=== PATIENT | male | born 1955 | race Caucasian/White ===

== ENCOUNTER 2025-02-20 13:26 | Emergency (ER) | payer BC, SELFPAY ==
[2025-02-20 13:30] VITALS: BP 149/83; PULSE 79; TEMP 37.6; O2SAT 94; BMI 26.8
--- NOTE | 2025-02-20 13:36 | ED_ITS ---
HPI HPI - General Adult General Chief complaint: Abdominal Pain Stated complaint: constipation Time Seen by Provider: 02/20/25 13:33 Source: patient Mode of arrival: walk-in History of Present Illness HPI narrative: 69-year-old male presents to the emergency department for constipation. He states he has not had any bowel movement since 5 days and he has tried MiraLAX he states he does not even feel like he needs to go but his stomach's been hurting. He has been urinating without trouble. No trauma or fever. He has had inguinal hernia repair but no other abdominal surgeries. Related Data Allergies Allergy/AdvReac Type Severity Reaction Status Date / Time No Known Drug Allergies Allergy Verified 02/20/25 13:36 Review of Systems ROS Narrative A ten point review of systems is negative except as noted above. PFSH PFSH Social History Little interest or pleasure in doing things: not at all Feeling down, depressed, or hopeless: not at all Exam Narrative Exam Narrative: Nurses note and vital signs reviewed and patient is not hypoxic. General: The patient appears well and in no apparent distress. Patient is resting comfortably on cart. Skin: Warm, dry, no pallor noted. There is no rash noted. Head: Normocephalic, atraumatic Eye: Normal conjunctiva, no drainage Ears, Nose, Mouth, and Throat: oral mucosa is moist. Nares patent. Cardiovascular: Regular Rate and Rhythm Respiratory: Patient is in no distress, no accessory muscle use, lungs are clear to auscultation, no wheezing, rales or rhonchi Back: non-tender GI: Nondistended. He seems to have mild diffuse tenderness. Musculoskeletal: The patient has no evidence of calf tenderness, no pitting edema, symmetrical pulses noted bilaterally Neurological: A&O, normal speech Psychiatric: Cooperative Constitutional Vital Signs, click to edit/add: Last Vital Signs Temp 99.7 F 02/20/25 13:30 Pulse 79 02/20/25 13:30 Resp 18 02/20/25 13:30 BP 149/83 H 02/20/25 13:30 Pulse Ox 94 L 02/20/25 13:30 O2 Del Method Room Air 02/20/25 13:30 Course Vital Signs Vital signs: Vital Signs Temperature 99.7 F 02/20/25 13:30 Pulse Rate 79 02/20/25 13:30 Respiratory Rate 18 02/20/25 13:30 Blood Pressure 149/83 H 02/20/25 13:30 Pulse Oximetry 94 L 02/20/25 13:30 Oxygen Delivery Method Room Air 02/20/25 13:30 Temperature 99.7 F 02/20/25 13:30 Pulse Rate 79 02/20/25 13:30 Respiratory Rate 18 02/20/25 13:30 Blood Pressure 149/83 H 02/20/25 13:30 Pulse Oximetry 94 L 02/20/25 13:30 Oxygen Delivery Method Room Air 02/20/25 13:30 Medical Decision Making MDM Narrative Medical decision making narrative: My clinical impression is that he has constipation. He was given a bottle of magnesium citrate and is discharged home. At this point I do not suspect diverticulitis or other acute intra-abdominal pathology. Treatment diagnosis and follow-up were discussed with the patient. Differential Diagnosis Differential Diagnosis: Constipation, nonspecific abdominal pain, diverticulitis Imaging Data Abdominal x-ray: My impression: Large amount of stool in ascending colon Discharge Plan Discharge Chief Complaint: Abdominal Pain Clinical Impression: Constipation Patient Disposition: Home, Self-Care Time of Disposition Decision: 14:02 Condition: Good Mode of Transportation: Private Vehicle Print Language: Bahraini Instructions: Constipation (ED) Referrals: AYLA SAMAYOA [Physician, Family Practice] - 1 week
--- NOTE | 2025-02-20 13:36 | XR_ITS ---
The [address] [address] Patient Name: CLEM QUINTERO MRN: [id number] date: 1955 Sex: M Assigned Patient Location: ER Current Patient Location: ED.MAIN Accession/Order Number: [id number] Exam Date: 02/20/2025 14:17 Report Date: 02/20/2025 14:18 At the request of: JOSE PRUITT MD Procedure: XR abdomen 1V XR abdomen 1V 02/20/2025 2:05 PM SIGNS AND SYMPTOMS: Constipation, abdominal pain PROTOCOL: Frontal radiographs of the abdomen and pelvis COMPARISON: None FINDINGS: There is a large amount of stool within the colon, greatest in the cecum and ascending colon. This is consistent with constipation. There is a nonobstructive bowel gas pattern. No radiographic evidence of free air. Degenerative changes are noted in the thoracolumbar spine. XR/XR abdomen 1V IMPRESSION: There is a large amount of stool within the colon, greatest in the cecum and ascending colon. This is consistent with constipation. No bowel obstruction or free air. Impression dictated by: Sergio Herrera M.D. 02/20/2025 2:18 PM Dictation Location: [place] [address] Electronically authenticated by: [id number] Y Date: 02/20/2025 14:18
[2025-02-20] MEDS: MAGNESIUM CITRATE 296 ML SOLUTION PO (14:18)
== END 2025-02-20 14:31 | disposition home or self-care (01) ==
PROVIDERS: Emergency Provider Emergency Medicine; PCP Family Medicine
DX: K59.00 Constipation, unspecified (principal)
CPT/HCPCS: 74018; 99283

== ENCOUNTER 2025-06-07 13:00 | Outpatient (OUT) | payer BC, MEDICARE, SELFPAY ==
--- OUTSIDE RECORDS SUMMARY | 2025-06-01 15:00 | XMS_ITS | Encounter Summary ---
Author Organization [facility] tem Address [id number] [address] [place] [address] Care Team Providers Care Franchise Sales Director Name Role Phone Gerald Garcia DO Primary Care Provider [phone] Reason for Visit * Reason Comments Diabetes Mellitus MTM Follow-up Visit Encounter Details Date Type Department Care Team (Latest Contact Info) Description 06/01/2025 3:00 PM EDT Clinical Support [facility] - Pharmacy Medication Management [address] [place] [address] Type 2 diabetes mellitus without complication, without long-term current use of insulin ([facility]) (Primary Dx) Social History Tobacco Use Types Packs/Day Years Used Date Smoking Tobacco: Never Smokeless Tobacco: Never Alcohol Use Standard Drinks/Week Comments Not Currently 0 (1 standard drink = 0.6 oz pur e alcohol) ocassional AUDIT-C Answer Date Recorded Frequency of Alcohol Consumption Monthly or less 02/24/2019 Average Number of Drinks 1 or 2 019 Frequency of Binge Drinking Never 01/29 PHQ-2 Answer Date Recorded Total Score 2 05/12/2025 Childcare Answer Date Recorded Childcare Unknown 03/11/2019 Employment Answer Date Recorded Employment Unknown 03/11/2019 Hunger Screening Answer Date Recorded Within the past 12 months we worried whether our food would run out before we got money to buy more. Never True 05/12/2025 Within the past 12 months th e food we bought just didn't last and we didn't have money to get more. Never True 05/12/2025 Purpose - Life Answer Date Recorded Purpose and direction in life Unknown Sex and Gender Information Value Date Recorded Sex Assigned at Male 06/08/2020 6:15 PM EDT Legal Sex Male 11:40 AM EDT Gender Identity Male 06/08/2020 6:15 PM EDT Sexual Orientation Not on file documented as of this encounter Progress Notes * Nida Christian, [facility] - 06/01/2025 3:00 PM EDT Images from the original note were not included. [facility] - PHARMACY MEDICATION MANAGEMENT [address] [facility] [phone] Subjective SUBJECTIVE: Referring Provider: Gerald Garcia MD [facility] Referring Provider: Yes Consult Agreement: Yes Employee Program:No At last PharmD visit, no changes were made Car Awad is a 69 y.o. (White or [1]) male who presents for a follow up MTM visit ofType 2 Diabetes Mellitus. Car Awad is accompanied by his no relatives. Pertinent current medications include: Metformin XR 1,000 mg in AM, 1000 mg in PM Ozempic 2 mg weekly- Saturday Pertinent previous medications include: Glimepiride- intolerable GI and urinary symptoms Farxiga- intolerable urinary symptoms PERTINENT PAST MEDICAL HISTORY: Chronic Kidney Disease: No Atherosclerotic Cardiovascular Disease (ASCVD): No Heart Failure with Reduced/Preserved Ejection Fraction: No Pancreatitis/Gastroparesis: No Medullary Thyroid Carcinoma: No Bariatric Surgery: No Genitourinary Fungal Infections: No DIET: 2 meals Eating a lot of fruit-- encouraged to pair with protein 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 calibrations per day: 0.0 Objective OBJECTIVE: Vitals: There were no vitals taken for this visit. Caffeine intake within 60 minutes: No Height: Weight: Wt Readings from Last 3 Encounters: 05/12/25 85.6 kg (188 lb 12.8 oz) 05/06/25 71.3 kg (157 lb 1.6 oz) 03/01/25 83.4 kg (183 lb 12.8 oz) Weight Trend: . BMI: There is no height or weight on file to calculate BMI. A1c: Lab Results Component Value Date HGBA1C 6.8 (H) 05/05/2025 HGBA1C 6.8 (H) 11/24/2024 HGBA1C 7.1 (H) 08/28/2024 HGBA1C 8.3 (H) 05/13/2024 HGBA1C 11.2 (H) 01/02/2023 Lab Results Component Value Date [id number] 6.6 (A) 03/01/2025 [id number] 7.7 (A) 01/14/2024 FEFUEWY5Y 8.5 (A) 10/14/2023 [id number] 8.3 (A) 07/11/2023 [id number] 8.6 (A) 04/03/2023 @RESUDAST(POCA1C:5)@ No results found for: YGTMHHE3X SCr: Lab Results Component Value Date CREATININE 1.21 (H) 05/06/2025 GFR: GFR MDRD Af Amer Date Value Ref Range Status 08/25/2021 >60 >59 ml/min/1.73sq.m Final GFR MDRD Non Af Amer Date Value Ref Range Status 08/25/2021 >60 >59 ml/min/1.73sq.m Final UACR: Alb/creat ratio Date/Time Value Ref Range Status 05/13/2024 07:34 AM 10.9 0.0 - 30.0 mg/g creat Final 01/02/2023 06:30 AM 15.0 0.0 - 30.0 mg/g creat Final No results found for: EXTPOCALB No results found for: EXTUMICOR No components found for: PROTCREATRA No results found for: UPROCRTRAT Vitamin B12 Level: Lab Results Component Value Date [id number] 302 08/28/2024 Lipid Management: Lab Results Component Value Date CHOL 152 05/05/2025 CHOL 125 (L) 11/25/2024 No results found for: EXTCHOL No results found for: EXTPOCCHO Lab Results Component Value Date HDL 37 (L) 05/05/2025 HDL 36 (L) 11/25/2024 No results found for: EXTCHOHDL No results found for: EXTPOCHDL Lab Results Component Value Date LDLCALC 81 05/05/2025 LDLCALC 51 11/25/2024 No results found for: EXTLDL No results found for: EXTPOCLDL Lab Results Component Value Date TRIG 169 (H) 05/05/2025 TRIG 188 (H) 11/25/2024 No results found for: EXTRIG No results found for: EXTPOCTRIG ADA Diabetes Quality Measures: - A1c: Up to date 05/05/25; 6.8% - Kidney Screening: - SCr: Up to date 11/25/24 - UACR: Up to date 05/13/24 - Lipid Screening: Up to date 11/25/24 - Vit B12: up to date 08.28.24, WNL - Eye Exam: Up to date 01/2025 - Foot Exam: Up to date 04/2024 - Dental Exam: Up to date every 6 months - Tobacco User: No - On Aspirin: No - On TERRENCE/ARB: No- did not tolerate lisinopril; BP WNL today - On Statin: Yes -atorvastatin 40 mg daily - Immunizations: Influenza Complete: No Pneumonia Complete: No Hepatitis B Complete: No Shingles Complete: No Tdap Complete: No Covid Complete: Yes Immunization History Administered Date(s) Administered COVID-19, mRNA, LNP-S, PF, 100mcg/0.5mL Dose 11/16/2020, 12/16/2020, 09/28/2021 Influenza, Injectable, quadrivalent (PF) 08/16/2017, 12/02/2019 ASSESSMENT/PLAN: ASSESSMENT: Type 2 Diabetes Mellitus: Most recent hemoglobin A1c is controlled at 6.8% on 05/05/2025. Most recent 2 week average is: 159 mg/dL PPG elevations continue at times, but are well controlled other days Tolerating medications without concern Since last OV patient had an admission for a possible TIA. Upon discharge followed up with neurology whom notes migraine/LAURA/exhaustion concerns. They recommended starting divalproex as well as revisiting LAURA treatment. Encouraged patient to follow up with Dr. Garcia regarding his LAURA. EDUCATION / ADA MEASURES: Reviewed general diabetes pathophysiology and management Reviewed A1C and blood glucose goals Reviewed CGM use and report with patient Reviewed diabetes medication dosing, route, frequency, and side effects Encouraged using the Plate Method for healthy eating Requested to bring in blood sugar readings to next visit MEDICATION PLAN: Continue Ozempic to 2 mg weekly Continue Metformin XR 500 mg 2 tabs BID Refills needed on pertinent current medications/supplies: No Patient Assistance, [employer] Coupon, or Prior Authorization: No MONITORING: CGM: Yes Glucometer Testing: As needed with CGM FOLLOW UP: Next PCP visit: 06/24/2025 Next Pharmacist visit: 10/05/2024 Signature: Nida Christian PharmD, [facility] 30 minute [id number] follow-up appointment. Nida Christian RPH 06/01/25 1603 documented in this encounter Plan of Treatment Upcoming Encounters Date Type Department Care Team (Late st Contact Info) Description 06/24/2025 3:00 PM EDT Office Visit [facility] Family Medicine [address] [place] [phone] Gerald Garcia DO [address] [facility], [address] [place], [place] [phone] 10/05/2025 3:00 PM EST Clinical Support [facility] - Pharmacy Medication Management [address] [place] [address] documented as of this encounter Goals Goal Patient Goal Type Associated Problems Recent Progress Patient-Stated? Author home General Yes Haley Tafoya, RN Note: Evaluation of progress towards goal: home no needs when medically stable documented as of this encounter Visit Diagnoses Diagnosis Type 2 diabetes mellitus without complication, without long-term current use of insulin ([facility])- Primary documented in this encounter Additional Health Concerns Assessment Noted Time PHQ-9 Depression Total Score: 2 05/12/20 25 12:55 PM EDT A Body Mass Index follow-up plan has been documented for the patient 08/30/2017 2:42 PM EST documented as of this encounter Care Teams Franchise Sales Director Relationship Specialty Start Date End Date Gerald Garcia DO [address] [facility], [facility] [address] [place] [address] PCP - General Family Medicine 05/05/25 documented as of this encounter
--- OUTSIDE RECORDS SUMMARY | 2025-06-08 09:25 | XMS_ITS | Encounter Summary ---
Author Organization [facility] Address [id number] [address] [place] [address] Care Team Providers Care Non Profit Director Name Role Phone Gerald Garcia DO Primary Care Provider [phone] Reason for Visit * Reason Onset Date Comments Med Refill 06/21/2023 Encounter Details Date Type Department Care Team (Late st Contact Info) Description 06/21/2023 Refill [facility] [address] [place] [address] Paulette Anton CMA Social History Tobacco Use Types Packs/Day Years Used Date Smoking Tobacco: Never Smokeless Tobacco: Never Alcohol Use Standard Drinks/Week Comments Yes 0 (1 standard drink = 0.6 oz pur e alcohol) ocassional AUDIT-C Answer Date Recorded Frequency of Alcohol Consumption Monthly or less 02/24/2019 Average Number of Drinks 1 or 2 019 Frequency of Binge Drinking Never 01/29 PHQ-2 Answer Date Recorded Total Score 0 05/06/2023 Childcare Answer Date Recorded Childcare Unknown 03/11/2019 Employment Answer Date Recorded Employment Unknown 03/11/2019 Hunger Screening Answer Date Recorded Within the past 12 months we worried whether our food would run out before we got money to buy more. Never True 05/06/2023 Within the past 12 months th e food we bought just didn't last and we didn't have money to get more. Never True 05/06/2023 Purpose - Life Answer Date Recorded Purpose and direction in life Unknown Sex and Gender Information Value Date Recorded Sex Assigned at Male 06/08/2020 6:15 PM EDT Legal Sex Male 11:40 AM EDT Gender Identity Male 06/08/2020 6:15 PM EDT Sexual Orientation Not on file documented as of this encounter Plan of Treatment Upcoming Encounters Date Type Department Care Team (Late st Contact Info) Description 06/24/2025 3:00 PM EDT Office Visit [facility] Family Medicine [address] [place] [phone] Gerald Garcia DO [address] [facility], [place] [address] 10/05/2025 3:00 PM EST Clinical Support [facility] - Pharmacy Medication Management [address] [place] [address] documented as of this encounter Goals Goal Patient Goal Type Associated Problems Recent Progress Patient-Stated? Author home General Yes Haley Tafoya, MELLY Note: Evaluation of progress towards goal: home no needs when medically stable documented as of this encounter Visit Diagnoses Not on filedocumented in this encounter Additional Health Concerns Assessment Noted Time PHQ-9 Depression Total Score: 0 05/06/20 23 7:00 AM EDT A Body Mass Index follow-up plan has been documented for the patient 08/30/2017 2:42 PM EST documented as of this encounter Care Teams Non Profit Director Relationship Specialty Start Date End Date Gerald Garcia DO [address] [facility], [place] [address] PCP - General Family Medicine 05/05/25 documented as of this encounter
--- OUTSIDE RECORDS SUMMARY | 2025-06-08 09:25 | XMS_ITS | Encounter Summary ---
Author [facility] Address [id number] [address] [place] [address] Care Team Providers Care Dredge Engineer Name Role Phone RanjithGerald florez Sophie TY Primary Care Provider [phone] Encounter Details Date Type Department Care Team (Late st Contact Info) Description 02/23/2025 Orders Only [facility] [address] [place] [address] [place] [phone] Ref Prov, [place] [address] Social History Tobacco Use Types Packs/Day Years [...] PHQ-2 Answer Date Recorded Total Score 0 12/09/2024 Childcare Answer Date Recorded Childcare Unknown 03/11/2019 Employment Answer Date Recorded Employment Unknown 03/11/2019 Hunger Screening Answer Date Recorded Within the past 12 months we worried whether our food would run out before we got money to buy more. Never True 12/09/2024 Within the past 12 months th e food we bought just didn't last and we didn't have money to get more. Never True 12/09/2024 Purpose - Life Answer Date Recorded Purpose [...] Description 06/24/2025 3:00 PM EDT Office Visit [facility] Family Medicine [address] [place] [phone] Gerald Garcia DO [address], [address], [place] [address] 10/05/2025 3:00 PM EST Clinical Support [facility] - Pharmacy Medication Management [address] [place] [address] documented as of this encounter Goals Goal Patient Goal Type Associated Problems Recent Progress Patient-Stated? Author home General Yes Haley Tafoya, RN Note: Evaluation of progress towards goal: home no needs when medically stable documented as of this encounter Procedures Procedure Name Priority Date/Time Associated Diagnosis Comments DIABETES EYE EXAM Routine 02/18/2025 8:04 AM EDT documented in this encounter Results * DIABETES EYE EXAM (02/18/2025 8:04 AM EDT) us Not In System Ref Prov HEALTH MAINTENANCE Final Result MANUALLY TRANSCRIBED RESULTS documented in this encounter Visit Diagnoses Not on filedocumented in this encounter Additional Health Concerns Assessment Noted Time PHQ-9 Depression Total Score: 0 12/10/19 3:39 PM EDT A Body Mass Index follow-up plan has been documented for the patient 08/30/2017 2:42 PM EST documented as of this encounter Care Teams Dredge Engineer Relationship Specialty Start Date End Date Gerald Garcia DO [address] [facility], [address] [place] [address] PCP - General Family Medicine 05/05/25 documented as of this encounter
--- OUTSIDE RECORDS SUMMARY | 2025-06-08 09:25 | XMS_ITS | Encounter Summary ---
Author Organization [facility] tem Address [id number] [address] [place] [address] Care Team Providers Care Sanitation Inspector Name Role Phone RanjithGerald florez Sophie TY Primary Care Provider Reason for Visit * Reason Onset Date Comments Discharge Speech Therapy 11/22/2020 Encounter Details Date Type Department Care Team (Late st Contact Info) Description 11/22/2020 Documentation [facility] - ENT [address] [facility] [place] [phone] Lupe Braden CCC-CONTACT LENS CUTTER Discharge Speech Therapy Social History Tobacco Use Types Packs/Day Years [...] PHQ-2 Answer Date Recorded Total Score 0 08/30/2020 Childcare Answer Date Recorded Childcare Unknown 03/11/2019 Employment Answer Date Recorded Employment Unknown 03/11/2019 Purpose - Life Answer Date Recorded Purpose and direction in life Unknown Sex and Gender Information Value Date Recorded Sex Assigned at Male 06/08/2020 6:15 PM EDT Legal Sex Male 11:40 AM EDT Gender Identity Male 06/08/2020 6:15 PM EDT Sexual Orientation Not on file documented as of this encounter Progress Notes * Edith Corona MD - 11/22/2020 11:06 AM EST reviewed documented in this encounter Plan of Treatment Upcoming Encounters Date Type Department Care Team (Late st Contact Info) Description 06/24/2025 3:00 PM EDT Office Visit [facility] Family Medicine [address] [place] [phone] Gerald Garcia DO [address] [facility], [place] [address] 10/05/2025 3:00 PM EST Clinical Support [facility] - Pharmacy Medication Management [address] [place] [address] documented as of this encounter Goals Goal Patient Goal Type Associated Problems Recent Progress Patient-Stated? Author home General Yes Haley Tafoya, MELLY Note: Evaluation of progress towards goal: home no needs when medically stable documented as of this encounter Visit Diagnoses Not on filedocumented in this encounter Additional Health Concerns Assessment Noted Time PHQ-9 Depression Total Score: 0 08/30/20 20 3:00 PM EST A Body Mass Index follow-up plan has been documented for the patient 08/30/2017 2:42 PM EST documented as of this encounter Care Teams Sanitation Inspector Relationship Specialty Start Date End Date Gerald Garcia DO [address] [facility], [place] [address] PCP - General Family Medicine 05/05/25 documented as of this encounter
--- OUTSIDE RECORDS SUMMARY | 2025-06-08 09:25 | XMS_ITS | Encounter Summary ---
Author Organization [facility] [employer] tem Address [facility] [id number] [address] [place] [address] Care Team Providers Care Raftsman Name Role Phone RanjithgautamGerald DO Primary Care Provider [phone] Encounter Details Date Type Department Care Team (Late st Contact Info) Description 02/24/2025 Orders Only [facility] [address] [place] [address] [place] [phone] External, Scanning Provider Social History Tobacco Use Types Packs/Day Years [...] Description 06/24/2025 3:00 PM EDT Office Visit [facility] [address] [place] [phone] Gerald Garcia DO [address], [address], [address] [place], [place] [phone] 10/05/2025 3:00 PM EST Clinical Support [facility] - Pharmacy Medication Management [address] [place] [address] documented as of this encounter Goals Goal Patient Goal Type Associated Problems Recent Progress Patient-Stated? Author home General Yes Haley Tafoya, MELLY Note: Evaluation of progress towards goal: home no needs when medically stable documented as of this encounter Procedures Procedure Name Priority Date/Time Associated Diagnosis Comments XR ABDOMEN AP 1 VW Routine 02/20/2025 4:15 PM EDT documented in this encounter Results * X-ray abdomen ap 1 view (02/20/2025 4:15 PM EDT) Anatomical Region Laterality Modality Body, Abdomen N/A Computed Radiogr aphy us Scanning Provider External IMG DIAGNOSTIC IMAGIN G ORDERABLES Final Result documented in this encounter Visit Diagnoses Not on filedocumented in this encounter Additional Health Concerns Assessment Noted Time PHQ-9 Depression Total Score: 0 12/10/19 3:39 PM EDT A Body Mass Index follow-up plan has been documented for the patient 08/30/2017 2:42 PM EST documented as of this encounter Care Teams Raftsman Relationship Specialty Start Date End Date Gerald Garcia DO [address], [address], [address] [place], [place] [phone] PCP - General Family Medicine 05/05/25 documented as of this encounter
--- OUTSIDE RECORDS SUMMARY | 2025-06-08 09:25 | XMS_ITS | Encounter Summary ---
Author Organization [employer] s tem Address [facility] [id number] [address] [place] [address] Care Team Providers Care Gas Engine Operator Compressors Name Role Phone Ranjithgautam Gerald Sophie TY Primary Care Provider [phone] Encounter Details Date Type Department Care Team (Late st Contact Info) Description 05/27/2020 Telephone [facility] [address] [place] [phone] Maxime Jacobsen MD [address]. Provider retired 12/29/24 [place] [address] Social History Tobacco Use Types Packs/Day Years Used Date Smoking Tobacco: Never Smokeless Tobacco: Never Alcohol Use Standard Drinks/Week Comments Yes 0 (1 standard drink = 0.6 oz pur e alcohol) ocassional AUDIT-C Answer Date Recorded Frequency of Alcohol Consumption Monthly or less 02/24/2019 Average Number of Drinks 1 or 2 019 Frequency of Binge Drinking Never 01/29 PHQ-2 Answer Date Recorded PHQ-2 Score 3 05/27/2020 Childcare Answer Date Recorded Childcare Unknown 03/11/2019 Employment Answer Date Recorded Employment Unknown 03/11/2019 Sex and Gender Information Value Date Recorded Sex Assigned at Male 06/08/2020 6:15 PM EDT Legal Sex Male 11:40 AM EDT Gender Identity Male 06/08/2020 6:15 PM EDT Sexual Orientation Not on file COVID-19 Exposure Response Date Recorded In the last month, have you been in contact with someone who was confirmed or suspected to have Coronavirus / COVID-19? No / Unsure 05/27/2020 10:07 AM EDT documented as of this encounter Miscellaneous Notes * Telephone Encounter - Joanseth Gasparkourtney - 05/27/2020 10:10 AM EDT Transition of Care (*required) *Additional Questions/Concerns Requiring PCP Follow-Up: Patient states COVID patients were in the ICU. Would that be an exposure with nurses going in and out. This documentation is being used for Transition of Care purposes: Yes Goal: Patient will demonstrate a safe transition Diagnosis on Discharge: Acute CVA *Name of Discharging Facility: [facility] Date of Facility Discharge: 05/25/20 Date of Interactive Contact and Name of Pest Control Worker: 05/27/20 Car in person. 05/26/20 LM attempt to complete BASIM *Medication Review Completed: Pending provider review Medication Reconciliation Questions/Concerns: *Follow Up Appointments with Providers: Primary: Maxime Jacobsen MD Specialty: Smith Rai Vascular Specialty: Rigo Cox Neurology Specialty: Review of Pending Lab/Diagnostic Tests and Plan for Completion: yes Assessment and Support of Treatment Regimen Adherence and Medication Management: yes Education Provided by ACN to Support Self-Management, Independent Living and ADLs: yes Communication with Home Health Agencies and Other Services Utilized/Needed by the Patient: no documented in this encounter Plan of Treatment Upcoming Encounters Date Type Department Care Team (Late st Contact Info) Description 06/24/2025 3:00 PM EDT Office Visit [facility] Family Medicine [address] [place] [address] Gerald Garcia, [address] [facility], [address], [place] [address] 10/05/2025 3:00 PM EST Clinical Support [facility] - Pharmacy Medication Management [address] [place] [address] documented as of this encounter Goals Goal Patient Goal Type Associated Problems Recent Progress Patient-Stated? Author home General Yes Haley Tafoya, RN Note: Evaluation of progress towards goal: home no needs when medically stable documented as of this encounter Visit Diagnoses Not on filedocumented in this encounter Additional Health Concerns Assessment Noted Time PHQ-9 Depression Total Score: 3 05/27/20 20 10:00 AM EDT A Body Mass Index follow-up plan has been documented for the patient 08/30/2017 2:42 PM EST documented as of this encounter Care Teams Gas Engine Operator Compressors Relationship Specialty Start Date End Date Gerald Garcia DO [address] [facility], [place] [address] PCP - General Family Medicine 05/05/25 documented as of this encounter
--- OUTSIDE RECORDS SUMMARY | 2025-06-08 09:25 | XMS_ITS | Encounter Summary ---
Author Organization [employer] Address [facility] [id number] [address] [place] [address] Care Team Providers Care Deli Slicer Name Role Phone Gerald Garcia DO Primary Care Provider [phone] Encounter Details Date Type Department Care Team (Late st Contact Info) Description 11/30/2022 Orders Only [facility] [address] [place] [phone] Clau Sotelo LPN Labral tear of long head of biceps tendon, right, initial encounter Social History Tobacco Use Types Packs/Day Years [...] PHQ-2 Answer Date Recorded Total Score 0 11/06/2022 Childcare Answer Date Recorded Childcare Unknown 03/11/2019 [...] have Coronavirus / COVID-19? No / Unsure 11/22/2022 6:23 AM EST documented as of this encounter Plan of Treatment Upcoming Encounters Date Type Department Care Team (Late st Contact Info) Description 06/24/2025 3:00 PM EDT Office Visit [facility] Family [facility] [address] [place] [address] [address] [place] [phone] Gerald Garcia DO [address] [facility], [facility] [address], [place] [address] 10/05/2025 3:00 PM EST Clinical Support [facility] - Pharmacy Medication Management [address] [place] [address] documented as of this encounter Goals Goal Patient Goal Type Associated Problems Recent Progress Patient-Stated? Author home General Yes Haley Tafoya, MELLY Note: Evaluation of progress towards goal: home no needs when medically stable documented as of this encounter Procedures Procedure Name Priority Date/Time Associated Diagnosis Comments AMB REFERRAL TO ORTHOPEDIC SURGERY Routine 11/29/2022 Labral tear of long head of biceps tendon, right, initial encounter documented in this encounter Results * Ambulatory referral to Orthopedic Surgery (11/29/2022) 11/29/2022 us Maxime Altamirano MD OUTPATIENT REFERRAL ORDERABL ES Final Result MANUALLY TRANSCRIBED RESULTS documented in this encounter Visit Diagnoses Diagnosis Labral tear of long head of biceps tendon, right, initial encounter documented in this encounter Additional Health Concerns Assessment Noted Time PHQ-9 Depression Total Score: 0 11/06/19 23 7:00 AM EST A Body Mass Index follow-up plan has been documented for the patient 08/30/2017 2:42 PM EST documented as of this encounter Care Teams Deli Slicer Relationship Specialty Start Date End Date Gerald Garcia DO [address] [place], [facility] [address] [place] [address] PCP - General Family Medicine 05/05/25 documented as of this encounter
--- OUTSIDE RECORDS SUMMARY | 2025-06-08 09:25 | XMS_ITS | Encounter Summary ---
Author Organization [employer] s tem Address [facility] [id number] [address] [place] [address] Care Team Providers Care Yarn Man Name Role Phone RanjithgautamGerald DO Primary Care Provider [phone] Encounter Details Date Type Department Care Team (Late st Contact Info) Description [facility]2021 [facility] [address] [place] [phone] Clau Sotelo LPN Social History Tobacco Use Types Packs/Day Years [...] PHQ-2 Answer Date Recorded Total Score 0 04/07/2021 Childcare Answer Date Recorded Childcare Unknown 03/11/2019 [...] have Coronavirus / COVID-19? No / Unsure 04/07/2021 3:05 PM EDT documented as of this encounter Miscellaneous Notes * Telephone Encounter - Clau Sotelo LPN - 04/11/2021 3:05 PM EDT calls stating Car was at the dentist yesterday and he got one of those spells where he twitches and has numbness on one side so they would not clean his teeth, His said you have previously wrote a note that says he can have his teeth cleaned, she was wondering if you would do that again * Telephone Encounter - Maxime Altamirano MD - 04/11/2021 3:05 PM EDT Note written documented in this encounter Plan of Treatment Upcoming Encounters Date Type Department Care Team (Late st Contact Info) Description 06/24/2025 3:00 PM EDT Office Visit [facility] Family Medicine [address] [place] [address] [place] [address] Gerald Garcia, 605 [facility], [address] [place] [address] 10/05/2025 3:00 PM EST Clinical Support [facility] - Pharmacy Medication Management [address] [place] [address] documented as of this encounter Goals Goal Patient Goal Type Associated Problems Recent Progress Patient-Stated? Author home General Yes Haley Tafoya, RN Note: Evaluation of progress towards goal: home no needs when medically stable documented as of this encounter Visit Diagnoses Not on filedocumented in this encounter Additional Health Concerns Assessment Noted Time PHQ-9 Depression Total Score: 0 04/07/20 21 3:00 PM EDT A Body Mass Index follow-up plan has been documented for the patient 08/30/2017 2:42 PM EST documented as of this encounter Care Teams Yarn Man Relationship Specialty Start Date End Date Gerald Garcia DO [address] [place] [address], [facility], [place] [address] PCP - General Family Medicine 05/05/25 documented as of this encounter
--- OUTSIDE RECORDS SUMMARY | 2025-06-08 09:25 | XMS_ITS | Encounter Summary ---
Author Organization [facility] tem Address [facility] [id number] [address] [place] [address] Care Team Providers Care Customer Loyalty Representative Name Role Phone Gerald Garcia Primary Care Provider [phone] Encounter Details Date Type Department Care Team (Late st Contact Info) Description 08/15/2017 Documentation [facility] - 6S Vascular Intermediate [address] [place] [address] Rosita Kam RN Social History Tobacco Use Types Packs/Day Years Used Date Smoking Tobacco: Never Smokeless Tobacco: Never Alcohol Use Standard Drinks/Week Comments Yes 0 (1 standard drink = 0.6 oz pur e alcohol) ocassional Sex and Gender Information Value Date Recorded Sex Assigned at Male 06/08/2020 6:15 PM EDT Legal Sex Male 11:40 AM EDT Gender Identity Male 06/08/2020 6:15 PM EDT Sexual Orientation Not on file documented as of this encounter Functional Status documented as of this encounter Mental Status * Question Answer Entry Date Author Overall Cognitive Status WFL 08/17/2017 11:18 AM EST Eileen Dalton, PT * Question Answer Entry Date Author Overall Cognitive Status X 08/15/2017 2:07 PM EST Kenneth Bell, Student Speech Therapy documented in this encounter Nursing Notes * Rosita Kam RN - 08/15/2017 4:31 PM EST Arrive in dept for testing. Monitored for safety and needs. documented in this encounter Plan of Treatment Upcoming Encounters Date Type Department Care Team (Late st Contact Info) Description 06/24/2025 3:00 PM EDT [facility] [address] [place] [phone] Gerald Garcia DO [address] [facility], [facility] [address], [place], [place] [phone] 10/05/2025 3:00 PM EST Clinical Support [facility] - Pharmacy Medication Management [address] [place] [address] documented as of this encounter Visit Diagnoses Not on filedocumented in this encounter Additional Health Concerns Assessment Noted Time PHQ-9 Depression Total Score: 0 07/18/20 17 3:00 PM EDT documented as of this encounter Care Teams Customer Loyalty Representative Relationship Specialty Start Date End Date Gerald Garcia DO [address] [facility] [address], [place] [address] PCP - General Family Medicine 05/05/25 documented as of this encounter
--- OUTSIDE RECORDS SUMMARY | 2025-06-08 09:25 | XMS_ITS | Encounter Summary ---
Author Organization [employer] Address [facility] [id number] [address] [place] [address] Care Team Providers Care Locomotive Operator Helper Name Role Phone Gerald Garcia DO Primary Care Provider [phone] Reason for Referral * Consultation (Routine) - Pending Review Specialty Diagnoses / Procedures Referred By Leonardo dallas Referred To Contact Pulmonary Disease / Pulmonary Medicine Diagnoses Sleep apnea, unspecified type Leida Arellano APRN-CNP [address] [place] [address] Phone: tel: fax: [facility] Pul[facility]Sleep [facility] SHARMILA KIRKPATRICK [address] [address] Phone: tel: fax: Referral ID Status Reason Start Date Expiration Date Visits Requested Visits Authorized [id number] Pending Review Specialty Services Required 05/06/2025 05/06/2026 1 1 Encounter Details Date Type Department Care Team (Late st Contact Info) Description 05/06/2025 Orders Only [facility] Internal [facility] [address] [place] [address] Leida Arellano APRN-CNP [address] [place] [address] Sleep apnea, unspecified type (Primary Dx) Social History Tobacco Use Types [...] got money to buy more. Never True 05/05/2025 Within the past 12 months th e food we bought just didn't last and we didn't have money to get more. Never True 05/05/2025 Purpose - Life Answer Date Recorded Purpose [...] Description 06/24/2025 3:00 PM EDT Office Visit [facility] [address] [place] [address] [place] [address] Gerald Garcia, DO [address] [place] [address], [address], [place] [address] 10/05/2025 3:00 PM EST Clinical Support [facility] - Pharmacy Medication Management [address] [place] [address] Scheduled Referrals Name Type Priority Associated Diagnoses Order Schedule Referral to [facility] Pul[facility]/Sleep Medicine - CECIL Herrera Outpatient Referral Routine Sleep apnea, unspecified type 1 Occurrences starting 05/06/2025 until 05/06/2026 documented as of this encounter Goals Goal Patient Goal Type Associated Problems Recent Progress Patient-Stated? Author home General Yes Haley Tafoya, RN Note: Evaluation of progress towards goal: home no needs when medically stable documented as of this encounter Visit Diagnoses Diagnosis Sleep apnea, unspecified type- Primary documented in this encounter Additional Health Concerns Assessment Noted Time PHQ-9 Depression Total Score: 0 12/10/19 25 3:39 PM EDT A Body Mass Index follow-up plan has been documented for the patient 08/30/2017 2:42 PM EST documented as of this encounter Care Teams Locomotive Operator Helper Relationship Specialty Start Date End Date Gerald Garcia DO [address] [place] [address], [facility] [address], [place] [address] PCP - General Family Medicine 05/05/25 documented as of this encounter
--- OUTSIDE RECORDS SUMMARY | 2025-06-08 09:25 | XMS_ITS | Encounter Summary ---
Author Organization [employer] s tem Address [id number] [address] [place] [address] Care Team Providers Care Marine Painter Name Role Phone Ranjithgautam Gerald Sophie TY Primary Care Provider Encounter Details Date Type Department Care Team (Late st Contact Info) Description 11/15/2021 Orders Only [facility] [address] [place] [address] External, Scanning Provider Social History Tobacco Use [...] 01/29 PHQ-2 Answer Date Recorded Total Score 3 09/04/2021 Childcare Answer Date Recorded Childcare Unknown 03/11/2019 [...] Encounters Date Type Department Care Team (Late Contact Info) Description 06/24/2025 3:00 PM EDT Office Visit [facility] [address] [place] [address] [place] [phone] Gerald Garcia DO 605 [facility], [facility], [facility] [address] [place], [place] [phone] 10/05/2025 3:00 PM EST Clinical Support [facility] - Pharmacy Medication Management [address] [place] [address] documented as of this encounter Goals Goal Patient Goal Type Associated Problems Recent Progress Patient-Stated? Author home General Yes Haley Tafoya, RN Note: Evaluation of progress towards goal: home no needs when medically stable documented as of this encounter Procedures Procedure Name Priority Date/Time Associated Diagnosis Comments SARS COV 2 (COVID-19) STAT 11/04/2021 documented in this encounter Results * SARS COV 2 (COVID-19) (11/04/2021) EXTERNAL SARS COV 2 Negative Negative MANUALLY TRANSCRIBED RESULTS NASOPHARYNGEAL 11/04/2021 us Scanning Provider External MICROBIOLOGY - GENERA L ORDERABLES Final Result MANUALLY TRANSCRIBED RESULTS documented in this encounter Visit Diagnoses Not on filedocumented in this encounter Additional Health Concerns Assessment Noted Time PHQ-9 Depression Total Score: 3 09/04/20 21 2:00 PM EST A Body Mass Index follow-up plan has been documented for the patient 08/30/2017 2:42 PM EST documented as of this encounter Care Teams Marine Painter Relationship Specialty Start Date End Date Gerald Garcia DO [address] [facility], [facility] [address], [place] [address] PCP - General Family Medicine 05/05/25 documented as of this encounter
--- OUTSIDE RECORDS SUMMARY | 2025-06-08 09:25 | XMS_ITS | Encounter Summary ---
Author Organization [employer] Address [id number] [address] [place] [address] Care Team Providers Care Catalyst Operator Name Role Phone Gerald Garcia DO Primary Care Provider [phone] Reason for Referral * Consultation (Routine) - Closed Specialty Diagnoses / Procedures Referred By Leonardo dallas Referred To Contact Orthopaedic Surgery Diagnoses Labral tear of long head of biceps tendon, right, initial encounter Maxime Altamirano MD Phone: tel: fax: Collins Saba MD [address] [place] [address] Phone: tel: fax: Referral ID Status Reason Start Date Expiration Date V isits Requested Visits Authorized [id number] Closed Specialty Services Required 11/06/2022 11/06/2023 1 1 Encounter Details Date Type Department Care Team (Late st Contact Info) Description 11/06/2022 Orders Only [facility] [address] [place] [address] Maxime Altamirano MD [address]. Provider retired 12/29/24 [place], [place] [id number] Labral tear of long head of biceps tendon, right, initial encounter (Primary Dx); Routine general medical examination at a health care facility Social History Tobacco Use Types Packs/Day Years [...] have Coronavirus / COVID-19? No / Unsure 11/06/2022 3:12 PM EST documented as of this encounter Plan of Treatment Upcoming Encounters Date Type Department Care Team (Late st Contact Info) Description 06/24/2025 3:00 PM EDT Office Visit [facility] [address] [place] [address] [place] [address] Gerald Garcia, [address] [facility], [address], [place] [address] 10/05/2025 3:00 PM EST Clinical Support [facility] - Pharmacy Medication Management [address] [place] [address] documented as of this encounter Goals Goal Patient Goal Type Associated Problems Recent Progress Patient-Stated? Author home General Yes Haley Tafoya, RN Note: Evaluation of progress towards goal: home no needs when medically stable documented as of this encounter Results * (ABNORMAL) Hemoglobin A1c (01/02/2023 6:30 AM EDT) Pathologist [facility] Hemoglobin A1C 11.2(H) 4.4 - 6.4 % 01/02/2023 3:04 PM EDT [facility] Average glucose 275 mg/dL 3:04 PM EDT [facility] PLASMA 01/02/2023 6:30 AM EDT 01/02/2023 6:31 AM EDT Maxime Altamirano MD LAB BLOOD ORDERABLES Final [facility] Performing Organization Address [facility] Co de Phone Number [facility] [address] [place] [address], [address] [address] * Prostatic specific antigen screen (01/02/2023 6:30 AM EDT) [facility] Prostatic specific antigen, screen 0.82 0.00 - 4.00 ng/mL 01/02/2023 1:59 PM EDT [facility] Comment: The method used for this test is [employer] DXI chemiluminescent immunoassay. Values obtained by different assay methods cannot be used interchangeably. Serum / Unknown 01/02/2023 6 :30 AM EDT 01/02/2023 6:31 AM EDT Maxime Altamirano MD LAB BLOOD ORDERABLES Final [facility] Performing Organization Address [facility] Co de Phone Number [facility] [address] [place] [address], [address] [address] * Thyroid profile includes TSH FT4 (01/02/2023 6:30 AM EDT) [facility] TSH 1.66 0.49 - 4.67 uIU/mL 01/02/2023 2:03 PM EDT [facility] T4, free 0.73 0.61 - 1.60 ng/dL 01/02/2023 2:07 PM EDT [facility] PLASMA 01/02/2023 6:30 AM EDT 01/02/2023 6:31 AM EDT us Maxime Altamirano MD LAB BLOOD ORDERABLES Final R esult Performing Organization Address City/[facility]/ZIP Co de Phone Number [facility] [address] [place] [phone] * (ABNORMAL) Microalbumin - Albumin: Creatinine Urine Ratio (01/02/2023 6:30 AM EDT) Microalbumin urine 2.3(H) 0.0 - 1.9 mg/dL 01/02/2023 2:01 PM EDT [facility] Urine creat 152.90 mg/dL 01/02/2023 2:01 PM EDT [facility] Alb/creat ratio 15.0 0.0 - 30.0 mg/g creat 01/02/2023 2:01 PM EDT [facility] Urine / Unknown 01/02/2023 6 :30 AM EDT 01/02/2023 6:31 AM EDT us Maxime Altamirano MD URINE ORDERABLES Final Resul t Performing Organization Address City/[facility]/ZIP Co de Phone Number [facility] [address] [place] [phone] * (ABNORMAL) Lipid profile (01/02/2023 6:30 AM EDT) Cholesterol 176 150 - 200 mg/dL 01/02/2023 1:59 PM EDT [facility] Triglycerides 379(H) 27 - 150 mg/dL 01/02/2023 1:59 PM EDT [facility] HDL Cholesterol 33(L) >39 mg/dL 1:59 PM EDT [facility] Comment: HDL <40 mg/dL - High Risk HDL > or = 40mg/dL- Desirable HDL >60 mg/dL - Negative Risk VLDL 76(H) 0 - 30 mg/dL 01/02/2023 1:59 PM EDT [facility] LDL (calc) 67 <130 mg/dL 01/02/2023 1:59 PM EDT [facility] Comment: LDL <100 mg/dL - Desirable LDL >160 mg/dL - High Risk Cholesterol:HDL Ratio 5.3(H) 1.0 - 5.0 01/02/2023 1:59 PM EDT [facility] PLASMA 01/02/2023 6:30 AM EDT 01/02/2023 6:31 AM EDT us Maixme Altamirano MD LAB BLOOD ORDERABLES Final R esult [facility] [address] [facility], [address] [place] [address] * (ABNORMAL) Comprehensive metabolic panel (01/02/2023 6:30 AM EDT) Sodium 139 134 - 146 mmol/L 01/02/2023 1:59 PM EDT [facility] Potassium, Bld 4.3 3.5 - 5.0 mmol/L 01/02/2023 1:59 PM EDT [facility] Chloride 101 98 - 109 mmol/L 01/02/2023 1:59 PM EDT [facility] CO2 27 22 - 32 mmol/L 01/02/2023 1:59 PM EDT [facility] Anion gap 11 5 - 15 mmol/L 01/02/2023 1:59 PM EDT [facility] BUN 18 5 - 27 mg/dL 01/02/2023 1:59 PM EDT [facility] Creatinine 1.10 0.60 - 1.30 mg/dL 01/02/2023 1:59 PM EDT [facility] Comment:METHOD TRACEABLE TO IDMS STANDARD Glucose 222(H) 65 - 99 mg/dL 01/02/2023 1:59 PM EDT [facility] Calcium 8.8 8.5 - 10.5 mg/dL 01/02/2023 1:59 PM EDT [facility] Total Protein 6.5 6.0 - 8.0 g/dL 01/02/2023 1:59 PM EDT [facility] Albumin 4.1 3.2 - 5.3 g/dL 01/02/2023 1:59 PM EDT [facility] Alkaline Phosphatase 80 39 - 130 U/L 01/02/2023 1:59 PM EDT [facility] AST 33 0 - 41 U/L 01/02/2023 1:59 PM EDT [facility] ALT 50(H) 0 - 40 U/L 01/02/2023 1:59 PM EDT [facility] Total bilirubin 0.4 0.3 - 1.2 mg/dL 01/02/2023 1:59 PM EDT [facility] eGFR (CKD-EPI)non-rac e dependent 74 >59 ml/min/1.7 3sq.m 01/02/2023 1:59 PM EDT [facility] Comment: Reported eGFR is based on the CKD-EPI 2020 equation that does not use a race coefficient. PLASMA 01/02/2023 6:30 AM EDT 01/02/2023 6:31 AM EDT us Maxime Altamirano MD LAB BLOOD ORDERABLES Final R esult [employer] [facility] [address] [facility], [address] [place] [address] * CBC auto differential (01/02/2023 6:30 AM EDT) White Blood Cells 4.2 4.0 - 11.0 X10E9/L 01/02/2023 1:34 PM EDT [facility] RBC count 4.40 4.10 - 5.70 X10E12/L 01/02/2023 1:34 PM EDT [facility] Hemoglobin 13.4 13.0 - 17.0 g/dL 01/02/2023 1:34 PM EDT [facility] Hematocrit 39.4 39 - 49 % 01/02/2023 1:34 PM EDT [facility] MCV 89 80 - 100 fL 01/02/2023 1:34 PM EDT [facility] MCH 30.4 27 - 34 pg 01/02/2023 1:34 PM EDT [facility] MCHC 34.0 32 - 36 g/dL 01/02/2023 1:34 PM EDT [facility] RDW 12.7 11.5 - 15.0 % 01/02/2023 1:34 PM EDT [facility] Platelets 191 150 - 450 X10E9/L 01/02/2023 1:34 PM EDT [facility] MPV 7.1 7 - 12 fL 01/02/2023 1:34 PM EDT [facility] % neutrophils 58.8 % 01/02/2023 1:34 PM EDT [facility] % lymphocytes 32.0 % 01/02/2023 1:34 PM EDT [facility] % monocytes 7.3 % 01/02/2023 1:34 PM EDT [facility] % eosinophils 1.6 % 01/02/2023 1:34 PM EDT [facility] % Basophils 0.3 % 01/02/2023 1:34 PM EDT [facility] Neutrophils Absolute (A) 2.5 1.5 - 6.6 X10E9/L 01/02/2023 1:34 PM EDT [facility] Lymphocytes Absolute 1.3 1.0 - 3.5 X10E9/L 01/02/2023 [facility] Monocytes Absolute 0.3 0 - 0.9 X10E9/L 01/02/2023 1:34 PM EDT [facility] Eosinophils Absolute 0.1 0.0 - 0.4 X10E9/L 01/02/2023 1:34 PM EDT [facility] Basophils Absolute 0.0 0.0 - 0.2 X10E9/L 01/02/2023 1:34 PM EDT [facility] Blood / Unknown 01/02/2023 6 :30 AM EDT 01/02/2023 6:31 AM EDT us Maxime Altamirano MD LAB BLOOD ORDERABLES Final R esult Performing Organization Address City/[facility]/ZIP Co de Phone Number [employer] [facility] [address] [facility], [address] [place] [address] * Ambulatory referral to Orthopedic Surgery (11/29/2022) 11/29/2022 Maxime Altamirano MD OUTPATIENT REFERRAL ORDERABL ES Final Result Performing Organization Address City/[facility] Co de Phone Number MANUALLY TRANSCRIBED RESULTS documented in this encounter Visit Diagnoses Diagnosis Labral tear of long head of biceps tendon, right, initial encounter- Primary Routine general medical examination at a health care facility documented in this encounter Additional Health Concerns Assessment Noted Time PHQ-9 Depression Total Score: 0 11/06/19 23 7:00 AM EST A Body Mass Index follow-up plan has been documented for the patient 08/30/2017 2:42 PM EST documented as of this encounter Care Teams Catalyst Operator Relationship Specialty Start Date End Date Gerald Garcia DO [address] [place] [address], [place] [address] PCP - General Family Medicine 05/05/25 documented as of this encounter
--- OUTSIDE RECORDS SUMMARY | 2025-06-08 09:25 | XMS_ITS | Encounter Summary ---
Author Organization [employer] Address [id number] [address] [place] [address] Care Team Providers Care Chief Construction Inspector Name Role Phone Gerald Garcia DO Primary Care Provider Encounter Details Date Type Department Care Team (Late Contact Info) Description 09/21/2020 Orders Only [facility] [address] [place] [id number] External, Scanning Provider Social History Tobacco Use [...] have Coronavirus / COVID-19? No / Unsure 08/30/2020 3:13 PM EST documented as of this encounter Plan of Treatment Upcoming Encounters Date Type Department Care Team (Late Contact Info) Description 06/24/2025 3:00 PM EDT Office Visit [facility] [address] [place] [address] [place] [phone] Gerald Garcia, [address], [address], [place] [address] 10/05/2025 3:00 PM EST Clinical Support [facility] - Pharmacy Medication Management [address] [place] [address] documented as of this encounter Goals Goal Patient Goal Type Associated Problems Recent Progress Patient-Stated? Author home General Yes Haley Tafoya, MELLY Note: Evaluation of progress towards goal: home no needs when medically stable documented as of this encounter Procedures Procedure Name Priority Date/Time Associated Diagnosis Comments SARS COV 2 (COVID-19) Routine 09/10/2020 documented in this encounter Results * SARS COV 2 (COVID-19) (09/10/2020) EXTERNAL SARS COV 2 Negative Negative MANUALLY TRANSCRIBED RESULTS NASOPHARYNGEAL 09/10/2020 us Scanning Provider External MICROBIOLOGY - GENERA [...] documented as of this encounter Care Teams Chief Construction Inspector Relationship Specialty Start Date End Date Gerald Garcia DO [address], [address], [address] [place], [place] [id number] PCP - General Family Medicine 05/05/25 documented as of this encounter
--- OUTSIDE RECORDS SUMMARY | 2025-06-08 09:25 | XMS_ITS | Encounter Summary ---
Author Organization [facility] Address [id number] [address] [place] [address] Care Team Providers Care Microbiology Quality Control Technician Name Role Phone Ranjithgautam Gerald Sophie TY Primary Care Provider [phone] Reason for Visit * Reason Onset Date Comments Transition Of Care 05/07/2025 Encounter Details Date Type Department Care Team (Late st Contact Info) Description 05/07/2025 Telephone [facility] [address] [place] [address] [place] [phone] Jessa Recio RN Transition Of Care Social History Tobacco Use Types Packs/Day Years [...] on file documented as of this encounter Miscellaneous Notes * Telephone Encounter - Jessa Recio RN - 05/07/2025 11:09 AM EDT Images from the original note were not included. Transition of Care Additional Questions/Concerns Requiring PCP Follow-Up: -Patient does not have a hospital follow up appointment scheduled with his PCP at this time. He hasa AWV visit scheduled on 05.12.25. This documentation is being used for Transition of Care purposes: Yes Goal: Patient will demonstrate a safe transition from hospital to home. Diagnosis on Discharge: Stroke-like symptoms Discharge Specialty: Neurology Name of Discharging Facility: [facility] Date of Facility Discharge: 05.05.25-05.06.25 Date of Interactive Contact and Name of Manganese Heater: 05.07.25 1110 Left a message. 05.07.25 1414 Spoke with the patient and his . Medication Review Completed: No -We discussed the new medication that was ordered. They declines to review his complete medication list. They have no questions about his medications at this time. Follow Up Appointments with Providers: Primary: Gerald Garcia, 05.12.25 1 pm Specialty: Neurology 05.13.25 Review of Pending Lab/Diagnostic Tests and Plan for Completion: -None Assessment and Support of Treatment Regimen Adherence and Medication Management: -Patient reports that he is doing ok. He continues to have a mild headache. -Patient denies any chest pain, shortness of breath, numbness, tingling or weakness. -Patient has a continuous glucose monitor and his blood sugar is 140. -Patients assists him with his medication and treatment regime. Education Provided by [facility] to Support Self-Management, Independent Living and ADLs: -Patient lives with his . -Patient denies the need for any DME. -Medication education was provided. -Encouraged to call the office with any questions, concerns, new or worsening symptoms. -Instructed to call 911 with any sudden shortness of breath, chest pain or stroke symptoms. We discussed stroke symptoms. Communication with Home Health Agencies and Other Services Utilized/Needed by the Patient: -None documented in this encounter Plan of Treatment Upcoming Encounters Date Type Department Care Team (Late st Contact Info) Description 06/24/2025 3:00 PM EDT Office Visit [facility] [address] [place] [address] [place] [phone] Gerald Garcia DO 605 [facility], [facility] [address], [facility] [place] [address] 10/05/2025 3:00 PM EST Clinical Support [facility] - Pharmacy Medication Management [address] [place] [address] documented as of this encounter Goals Goal [...] documented as of this encounter Care Teams Microbiology Quality Control Technician Relationship Specialty Start Date End Date Gerald Garcia DO [address] [facility], [facility] [address], [facility] [address] [place], [place] [phone] PCP - General Family Medicine 05/05/25 documented as of this encounter
--- OUTSIDE RECORDS SUMMARY | 2025-06-08 09:25 | XMS_ITS | Encounter Summary ---
Author Organization [facility] Address [id number] [address] [place] [address] Care Team Providers Care Plant Operator/Shift Supervisor Name Role Phone Gerald Garcia DO Primary Care Provider [phone] Encounter Details Date Type Department Care Team (Late st Contact Info) Description 02/19/2024 Orders Only [facility] [address] [place] [phone] External, Scanning Provider Social History Tobacco Use [...] PHQ-2 Answer Date Recorded Total Score 0 11/06/2023 Childcare Answer Date Recorded Childcare Unknown 03/11/2019 Employment Answer Date Recorded Employment Unknown 03/11/2019 Hunger Screening Answer Date Recorded Within the past 12 months we worried whether our food would run out before we got money to buy more. Never True 11/06/2023 Within the past 12 months th e food we bought just didn't last and we didn't have money to get more. Never True 11/06/2023 Purpose - Life Answer Date Recorded Purpose [...] Description 06/24/2025 3:00 PM EDT Office Visit [facility] [address] [place] [phone] Gerald Garcia DO 605 [facility], [facility] [address] [facility] [address], [facility] [place] [address] 10/05/2025 3:00 PM EST Clinical Support [facility] - Pharmacy Medication Management [address] [place] [address] documented as of this encounter Goals Goal Patient Goal Type Associated Problems Recent Progress Patient-Stated? Author home General Yes Haley Tafoya, MELLY Note: Evaluation of progress towards goal: home no needs when medically stable documented as of this encounter Procedures Procedure Name Priority Date/Time Associated Diagnosis Comments DIABETES EYE EXAM Routine 02/18/2024 documented in this encounter Results * DIABETES EYE EXAM (02/18/2024) us Scanning Provider External HEALTH MAINTENANCE Fi nal Result MANUALLY TRANSCRIBED RESULTS documented in this encounter Visit Diagnoses Not on filedocumented in this encounter Additional Health Concerns Assessment Noted Time PHQ-9 Depression Total Score: 0 11/06/19 24 7:00 AM EST A Body Mass Index follow-up plan has been documented for the patient 08/30/2017 2:42 PM EST documented as of this encounter Care Teams Plant Operator/Shift Supervisor Relationship Specialty Start Date End Date Gerald Garcia DO [address] [facility], [facility] [address], [place] [address] PCP - General Family Medicine 05/05/25 documented as of this encounter
--- OUTSIDE RECORDS SUMMARY | 2025-06-08 09:26 | XMS_ITS | Clinical Summary ---
Author Organization iov[facility] tem Address [id number] [address] [place] [address] Care Team Providers Care Surfacing Technician Name Role Phone Gerald Garcia DO Primary Care Provider [phone] Allergies Active Allergy Reactions Criticality Noted Date Comments Iodinated Contrast Media 05/06/2025 Twitching Metoclopramide Hcl GI Disturbance,Abdominal Pain Low 05/05/2025 Stomach Pain Medications blood-glucose meter (FREESTYLE LITE METER) kitIndications:Type 2 diabetes mellitus without complication, without long-term current use of insulin [place] Use to test glucose 2x per day. May sub any brand covered by insurance 1 each 023 Active blood sugar diagnostic (glucose blood) stripIndications:Type 2 diabetes mellitus without complication, without long-term current use of insulin ([facility] Use to test blood glucose 2x per day or as calibration for Freestyle Andrea 100 strip 3 023 Active lancets (LANCETS,THIN) 28 gauge miscIndications:Type 2 diabetes mellitus without complication, without long-term current use of insulin ([facility] Use to test blood glucose 2x per day. Ok to sub size 28, 29, or 30 gauge based on insurance preferance 100 each 3 023 Active blood-glucose meter,continuous (DEXCOM G7 GEOGRAPHY PROFESSOR) miscIndications:Type 2 diabetes mellitus without complication, without long-term current use of insulin ([facility]) Use to check glucose daily 1 each 024 Active meloxicam (MOBIC) 15 mg tablet Take 1 tablet (15 mg total) by mouth in the morning. 30 tablet 5 025 Active DULoxetine (CYMBALTA) 30 mg capsule Take 1 capsule (30 mg total) by mouth nightly. 90 capsule 1 025 Active atorvastatin (LIPITOR) 40 mg tabletIndications:Pure hypercholesterolemia Take 1 tablet (40 mg total) by mouth nightly. 90 tablet 1 025 Active blood-glucose sensor (TrelliSoft G7 SENSOR) deviceIndications:Type 2 diabetes mellitus without complication, without long-term current use of insulin ([facility] Use to check glucose daily. Change sensor every 10 days 9 each 1 025 Active amitriptyline (ELAVIL) 100 mg tablet Take 1 tablet (100 mg total) by mouth nightly. 90 tablet 025 Active semaglutide (OZEMPIC) 2 mg/dose (8 mg/3 mL) pen injectorIndications:Typ e 2 diabetes mellitus without complication, without long-term current use of insulin ([facility] Inject 2 mg under the skin every 7 days. 9 mL 1 025 Active metFORMIN XR (GLUCOPHAGE XR) 500 mg 24 hr tabletIndications:Type 2 diabetes mellitus without complication, without long-term current use of insulin ([facility] Take 2 tablets (1,000 mg total) by mouth in the morning and 2 tablets (1,000 mg total) before bedtime. 025 Active aspirin 81 mg chewable tablet Chew 1 tablet (81 mg total) and swallow in the morning. 30 tablet 025 Active divalproex (DEPAKOTE ER) 250 mg 24 hr tablet Take 1 tablet (250 mg total) by mouth nightly. Active Active Problems Problem Noted Date Diagnosed Date Somatic dysfunction of rib 05/25/2025 Assessment & Plan (05/25/2025 9:06 AM EDT): After receiving verbal consent, performed osteopathic techniques including muscle energy, facilitated positional release, and counter strain. Patient tolerated well and had some resolution of chest discomfort Stroke-like symptoms 05/05/2025 Overweight 05/05/2025 LAURA (obstructive sleep apnea) 05/05/2025 Type 2 diabetes mellitus wit hout complication, without long-term current use of insulin 09/04/2021 Assessment & Plan (12/09/2024 5:48 PM EDT): Hemoglobin A1c from November 24 was at goal at 6.8%. Continue with metformin xr 1000 mg twice daily and Ozempic 2 mg subcutaneously weekly Acute CVA (cerebrovascular accident) 05/23/2020 Intrinsic eczema 02/06/2018 TIA (transient ischemic attack) 08/15/2017 Assessment & Plan (05/25/2025 9:05 AM EDT): Follow with Neurology. Continue with risk factor reductions including diabetes blood sugar management, management of hyperlipidemia. Patient's blood pressure is controlled. Continue with antiplatelet treatment with aspirin 81 mg daily Assessment & Plan (12/09/2024 5:47 PM EDT): No current neurological deficits noted per patient history or on exam discussed with patient importance for controlling risk factors for TIA/CVA which includes blood pressure control, lipid control, diabetes management Pure hypercholesterolemia 07/18/2017 Hypertension Encounters Date Type Department Care Team Description 06/01/2025 3:00 PM EDT Clinical Support [facility] - Pharmacy Medication Management [address] [place] [address] Type 2 diabetes mellitus without complication, without long-term current use of insulin ([facility]) (Primary Dx) 06/01/2025 Travel 05/12/2025 1:00 PM EDT Office Visit [facility] [address] [place] [address] [place] [phone] Gerald Garcia, TIA (transient ischemic attack) (Primary Dx); Somatic dysfunction of rib 05/12/2025 Travel 05/10/2025 Telephone [facility], A Department of [facility] [address] [facility] [address] [place] [address] Wendy Worley 05/07/2025 Telephone [facility] [address] [place] [address] [place] [address] Jessa Recio RN Transition Of Care 05/06/2025 Orders Only [facility] [address] [address] [address] [facility] [place] [phone] Leida Arellano APRN-PADILLA Sleep apnea, unspecified type (Primary Dx) 05/05/2025 9:02 AM EDT - 05/06/2025 2:21 PM EDT Hospital Encounter [facility] - Acute Care [address] [place] [address] Pablo Reece DO Shah, Jagruti Nimit, MD Stroke-like symptoms (Primary Dx); Type 2 diabetes mellitus without complication, without long-term current use of insulin ([facility] Other migraine without status migrainosus, not intractable Discharge Disposition: Home 05/05/2025 Travel 05/02/2025 Refill [facility] Pharmacy Medication Management [address] [place] [address] Leanne Badillo MD Type 2 diabetes mellitus without complication, without long-term current use of insulin ([facility]) 04/24/2025 Refill [facility] [address] [place] [address] [place] [address] Leanne Badillo MD 03/17/2025 Refill [facility] Medication Management [address] [place] [address] Leanne Badillo MD Type 2 diabetes mellitus without complication, without long-term current use of insulin ([facility]) from Last 3 Months Immunizations Immunization Administration Dates Next Due Influenza, Injectable, quadrivalent (PF) 020,08/16/2017 Family History Medical History Relation Name Comments Sleep apnea Brother 1 marisa Throat cancer Brother 1 marisa Alcohol abuse Father Bleeding Disorder Father Heart disease Father Heart failure Father Liver disease Father Diabetes Maternal Grandfather Allergies Mother Hyperlipidemia Mother Alcohol abuse Paternal Grandfather Alcohol abuse Paternal Uncle Anesthesia problems Neg Hx Clotting disorder Neg Hx Colon cancer Neg Hx Prostate cancer Neg Hx Stroke Neg Hx Relation Name Status Comments Brother 1 marisa Alive throat cancer Brother 2 Alive Father Maternal Grandfather Maternal Grandmother Mother Alive Paternal Grandfather Paternal Grandmother Paternal Uncle Sister Alive Social History Tobacco Use Types Packs/Day Years Used Date Smoking Tobacco: Never Smokeless Tobacco: Never Tobacco Cessation:Counseling Given: Not Answered Alcohol Use Standard Drinks/Week Comments Not Currently [...] PM EDT Sexual Orientation Not on file Last Filed Vital Signs Vital Sign Reading Time Taken Comments Blood Pressure 126/84 05/12/2025 12:56 PM EDT Pulse 86 05/12/2025 12:56 PM EDT Temperature 36.4 C (97.5 F) 05/12/2025 12:56 PM EDT Respiratory Rate 18 05/06/2025 7:38 AM EDT Oxygen Saturation 97% 05/12/2025 12: 56 PM EDT Inhaled Oxygen Concentration - - Weight 85.6 kg (188 lb 12.8 oz) 025 12:56 PM EDT Height 177.8 cm (5' 10 ) 05/12/2025 12: 56 PM EDT Body Mass Index 27.09 05/12/2025 12:56 PM EDT Plan of Treatment Upcoming Encounters Date Type Department Care Team (Late st Contact Info) Description 06/24/2025 3:00 PM EDT Office Visit [facility] [address] [place] [address] Gerald Garcia, DO [address] [facility] [place], [place] [id number] 10/05/2025 3:00 PM EST Clinical Support [facility] - Pharmacy Medication Management [address] [place] [address] Health Maintenance Due Date Last Done Comments Adult BMI Follow Up Plan 1973 DTaP,Tdap and Td Vaccines (1 - Tdap) 1974 Zoster (Shingles) Vaccine (1 of 2) 2005 Diabetic Foot Exam 05/06/2024 05/06/2023, 04/28/2019 Fall Risk Screening 05/07/2025 05/07/2024 COVID-19 Vaccine ( season) 2025 09/28/2021, 12/16/2020, 11/16/2020 Influenza Vaccine 05/31/2025 12/02/2019, 08/16/2017 Colonoscopy 11/22/2025 11/22/2022, 11/01, 09/13/2011 Statin Use: Cardiovascular 12/09/2025 12/09/2024 Statin Use: Diabetic 12/09/2025 12/09/2024 Diabetic Ophthalmology Exam 02/18/202601/29, 02/18/2024, 06/16/2019 Adult BMI Screening 05/12/2026 05/12/2025 Depression Screening 05/12/2026 05/12/2025 Tobacco Screening 05/12/2026 05/12/2025 Goals Goal Patient Goal Type Associated Problems Recent Progress Patient-Stated? Author home General Yes Haley Tafoya, RN Note: Evaluation of progress towards goal: home no needs when medically stable Medical Devices Not on file Procedures Procedure Name Priority Date/Time Associated Diagnosis Comments MR BRAIN WO CONT STAT 05/06/2025 9:04 AM EDT EXTRA TUBES BLUE TOP Routine 05/06/2025 5:47 AM EDT EXTRA TUBES Routine 05/06/2025 5:47 AM EDT CBC WITH AUTO DIFFERENTIAL Routine 05/06/2025 5:47 AM EDT MAGNESIUM Routine 05/06/2025 5:47 AM EDT COMPREHENSIVE METABOLIC PANEL Routine 05/06/2025 5:47 AM EDT ECG 12-LEAD Routine 05/05/2025 5:44 PM EDT BEDSIDE GLUCOSE Routine 05/05/2025 5:06 PM EDT TROP I, HIGH SENSITIVITY 1 HOUR STAT 05/05/2025 10:25 AM EDT MAGNESIUM STAT Add-on 05/05/2025 9:31 AM EDT LIPID PROFILE Add-On 05/05/2025 9:31 AM EDT HEMOGLOBIN A1C Add-On 05/05/2025 9:31 AM EDT TROPONIN I, HIGH SENSITIVITY 0 HOUR STAT 05/05/2025 9:31 AM EDT TROPONIN I, HIGH SENSITIVITY 0 HOUR STAT 05/05/2025 9:31 AM EDT COMPREHENSIVE METABOLIC PANEL STAT 05/05/2025 9:31 AM EDT CBC WITH AUTO DIFFERENTIAL STAT 05/05/2025 9:31 AM EDT EXTRA TUBES LANDIS TOP ON ICE Routine 05/05/2025 9:27 AM EDT EXTRA TUBES BLUE TOP Routine 05/05/2025 9:27 AM EDT EXTRA TUBES Routine 05/05/2025 9:27 AM EDT ECG 12-LEAD STAT 05/05/2025 9:[address] CTA CAROTID STAT 05/05/2025 9:25 AM EDT ED PHYSICIAN NIHSS AND THROMBOLYTIC DECISION Routine 05/05/2025 9:[address] CTA HEAD STAT 05/05/2025 9:[address] BRAIN WO CONT STROKE ALERT STAT 05/05/2025 9:12 AM EDT HM DIABETES EYE EXAM Routine 02/18/2025 8:04 AM EDT PROVATION COLONOSCOPY Routine 11/22/2022 6:41 AM EST AMB REFERRAL TO PODIATRY Routine 04/28/2019 Bunion of great toe of left foot from Last 3 Months or Most Recently Relevant to Health Maintenance Results * MR brain without contrast (05/06/2025 9:04 AM EDT) Anatomical Region Laterality Modality Neuro, Head, Head and Neck, Neuro Covera N/A Magnetic Resonance 05/06/2025 9:08 AM EDT Narrative 05/06/2025 9:13 AM EDT EXAM:MR BRAIN WO CONT INDICATION: Neuro deficit COMPARISON: None TECHNIQUE: Multiplanar multisequence noncontrast MR sequences through the head/brain. BRAIN FINDINGS: Brain Parenchyma: No acute hemorrhage, cerebral edema, or acute infarction. No mass, mass effect, or midline shift. Ventricles and Sulci: Normal for age. Extra-Axial Spaces: No extra-axial fluid collection. Intracranial Flow-Voids: Arterial and venous sinus flow voids appear normal. Orbits: Bilateral pseudophakia Paranasal Sinuses: Mild polypoid mucosal thickening of the left maxillary sinus Mastoid Air Cells: Trace bilateral effusions Cranium: Normal Extracranial Soft Tissues: Normal IMPRESSION: No acute or subacute intracranial abnormalities Finalized by Gerald Sharif on 05/06/2025 9:13 AM Procedure Note Gerald Sharif MD - 05/06/2025 EXAM:MR BRAIN WO CONT INDICATION: Neuro deficit COMPARISON: None TECHNIQUE: Multiplanar multisequence noncontrast MR sequences through thehead/brain. BRAIN FINDINGS: Brain Parenchyma: No acute hemorrhage, cerebral edema, or acuteinfarction. No mass, mass effect, or midline shift. Ventricles and Sulci: Normal for age. Extra-Axial Spaces: No extra-axial fluid collection. Intracranial Flow-Voids: Arterial and venous sinus flow voids appearnormal. Orbits: Bilateral pseudophakia Paranasal Sinuses: Mild polypoid mucosal thickening of the left maxillarysinus Mastoid Air Cells: Trace bilateral effusions Cranium: Normal Extracranial Soft Tissues: Normal IMPRESSION: No acute or subacute intracranial abnormalities Finalized by Gerald Sharif on 05/06/2025 9:13 AM us Leida Arellano SOUND EQUIPMENT MECHANIC-VEGETABLE LOADER IMG MRI ORDERABLES Final Result * Light Blue Top (05/06/2025 5:47 AM EDT) Only the most recent of2 resultswithin the time period is included. Extra Tube Auto Resulted 05/06/2025 7:01 AM EDT [facility] Blood Venous blood / Unknown 05/06/2025 5:47 AM EDT 05/06/2025 6:11 AM EDT Debbie Louie MD LAB BLOOD ORDERABLES Final Result [facility] [address] [place] [address], [place] * (ABNORMAL) CBC auto differential (05/06/2025 5:47 AM EDT) Only the most recent of2 resultswithin the time period is included. WBC 3.6(L) 4 - 11 x10E9/L 05/06/2025 6:26 AM EDT [facility] RBC Count 4.20 4.1 - 5.7 X10E12/L 05/06/2025 6:26 AM EDT [facility] Hemoglobin 12.6(L) 13 - 17 g/dL 05/06/2025 6:26 AM EDT [facility] Hematocrit 37.2(L) 39 - 50 % 05/06/2025 6:26 AM EDT [facility] MCV 88 80 - 100 fL 05/06/2025 6:26 AM EDT [facility] MCH 30.0 27 - 34 pg 05/06/2025 6:26 AM EDT [facility] MCHC 33.9 32 - 36 g/dL 05/06/2025 6:26 AM EDT [facility] RDW 13.7 11.5 - 15 % 05/06/2025 6:26 AM EDT [facility] Platelet Count 219 150 - 450 X10E9/L 05/06/2025 6:26 AM EDT [facility] MPV 6.8(L) 7 - 12 fL 05/06/2025 6:26 AM EDT [facility] Neutrophils % 66.3 % 05/06/2025 6:26 AM EDT [facility] Lymphocytes % 23.3 % 05/06/2025 6:26 AM EDT [facility] Monocytes % 7.8 % 05/06/2025 6:26 AM EDT [facility] Eosinophils % 2.3 % 05/06/2025 6:26 AM EDT [facility] Basophils % 0.3 % 05/06/2025 6:26 AM EDT [facility] Neutrophils Absolute (A) 2.4 1.5 - 6.6 10*3/uL 05/06/2025 6:26 AM EDT [facility] Lymphocytes Absolute 0.8(L) 1.0 - 3.5 10*3/uL 05/06/2025 6:26 AM EDT [facility] Monocytes Absolute 0.3 0.0 - 0.9 10*3/uL 05/06/2025 6:26 AM EDT [facility] Eosinophils Absolute 0.1 0.0 - 0.4 10*3/uL 05/06/2025 6:26 AM EDT [facility] Basophils Absolute 0.0 0.0 - 0.2 10*3/uL 05/06/2025 6:26 AM EDT [facility] Differential Type AUTOMATED DIFFERENTIAL 05/06/2025 6:26 AM EDT [facility] Blood Venous blood / Unknown Venipuncture / Unknown 05/06/2025 5:47 AM EDT 05/06/2025 6:06 AM EDT Cassandra India MCCRAY-VEGETABLE LOADER LAB BLOOD ORDERABLES Final Result [address] [address], [place] * Magnesium (05/06/2025 5:47 AM EDT) Only the most recent of2 resultswithin the time period is included. MAGNESIUM 2.0 1.8 - 2.6 mg/dL 05/06/2025 7:12 AM EDT [facility] Blood Venous blood / Unknown Venipuncture / Unknown 05/06/2025 5:47 AM EDT 05/06/2025 6:06 AM EDT Cassandra Osborne APRN-VEGETABLE LOADER LAB BLOOD ORDERABLES Final Result [address] [place] [address], [place] * (ABNORMAL) Comprehensive metabolic panel (05/06/2025 5:47 AM EDT) Only the most recent of2 resultswithin the time period is included. SODIUM 140 134 - 146 mmol/L 05/06/2025 7:12 AM EDT [facility] POTASSIUM 5.0 3.5 - 5.0 mmol/L 05/06/2025 7:12 AM EDT [facility] CHLORIDE 104 98 - 109 mmol/L 05/06/2025 7:12 AM EDT [facility] CARBON DIOXIDE 29 22 - 32 mmol/L 05/06/2025 7:12 AM EDT [facility] ANION GAP 7 5 - 15 mmol/L 05/06/2025 7:12 AM EDT [facility] BLOOD UREA NITROGEN 24 5 - 27 mg/dL 05/06/2025 7:12 AM EDT [facility] CREATININE 1.21(H) 0.70 - 1.20 mg/dL 05/06/2025 7:12 AM EDT [facility] Comment:METHOD TRACEABLE TO IDPA STANDARD GLUCOSE 119(H) 65 - 99 mg/dL 05/06/2025 7:12 AM EDT [facility] CALCIUM 8.8 8.5 - 10.5 mg/dL 05/06/2025 7:12 AM EDT [facility] TOTAL PROTEIN 6.7 6.0 - 8.0 g/dL 05/06/2025 7:12 AM EDT [facility] ALBUMIN 3.9 3.2 - 5.3 g/dL 05/06/2025 7:12 AM EDT [facility] ALKALINE PHOSPHATASE 62 39 - 130 U/L 05/06/2025 7:12 AM EDT [facility] AST 20 <=41 U/L 05/06/2025 7:12 AM EDT [facility] ALT 28 <=40 U/L 05/06/2025 7:12 AM EDT [facility] BILIRUBIN,TOTAL 0.8 0.3 - 1.2 mg/dL 05/06/2025 7:12 AM EDT [facility] EGFR Non-Race Dependent 65 >=60 ml/min/1.7 3sq.m 05/06/2025 7:12 AM EDT [facility] Comment: eGFR not reported due to non-numeric value for Creatinine. Reported eGFR is based on the CKD-EPI 2020 equation that does not use a race coefficient. Blood Venous blood / Unknown Venipuncture / Unknown 05/06/2025 5:47 AM EDT 05/06/2025 6:06 AM EDT Cassandra Osborne SOUND EQUIPMENT MECHANIC-VEGETABLE LOADER LAB BLOOD ORDERABLES Final Result Performing Organization Address City/[facility]/ZIP Co de Phone Number [facility] [address] [place] [address] [place] [address], [place] * ECG 12 lead (05/05/2025 5:44 PM EDT) Only the most recent of2 resultswithin the time period is included. 05/05/2025 5:44 PM EDT Narrative [facility] - 05/06/2025 2:48 PM EDT Leida Adan SOUND EQUIPMENT MECHANIC-VEGETABLE LOADER ECG ORDERABLES Final Res ult Performing Organization Address [facility] Co de Phone Number [facility] * (ABNORMAL) Bedside Glucose *Place/Obtain serum glucose if >500 per glucometer. (05/05/2025 5:06 PM EDT) Bedside Glucose (POC) 114(H) 65 - 99 mg/dL 05/05/2025 5:10 PM EDT [facility] arterial/capilla ry 05/05/2025 5:06 PM EDT 05/05/2025 5:10 PM EDT Debbie Louie MD POINT OF CARE TEST ORDERAB LES Final Result Performing Organization Address City/[facility]/ZIP Co de Phone Number [facility] [address] [place] [address] [place] [address], [place] * Troponin I, High Sensitivity 1 Hour (05/05/2025 10:25 AM EDT) Pathologist [facility] TROPONIN I, HIGH SENSITIVITY 5 <21 ng/L 05/05/2025 10:54 AM EDT [facility] Blood Venous blood / Unknown Venipuncture / Unknown 05/05/2025 10:25 AM EDT 05/05/2025 10:28 AM EDT [facility] LAB BLOOD ORDERABLES Fin al Result Performing Organization Address City/[facility]/ZIP Co de Phone Number [address] [place] [address], [place] * Troponin I, High Sensitivity 0 Hour (05/05/2025 9:31 AM EDT) TROPONIN I, HIGH SENSITIVITY 5 <21 ng/L 05/05/2025 10:13 AM EDT [facility] Blood Venous blood / Unknown Venipuncture / Unknown 05/05/2025 9:31 AM EDT 05/05/2025 9:31 AM EDT [facility] LAB BLOOD ORDERABLES Fin al Result Performing Organization Address [facility] de Phone Number [address] [place] [address], [place] * (ABNORMAL) Hemoglobin A1c (05/05/2025 9:31 AM EDT) HEMOGLOBIN A1C 6.8(H) 4.4 - 5.6 % 05/05/2025 6:04 PM EDT [facility] Comment: ADA Guidelines Result HgbA1c Normal : less than 5.7 % Prediabetes : 5.7 % to 6.4 % Diabetes : > 6.4 % Use with caution in patients with abnormal hemoglobin variants as the half-life of red blood cells and in vivo glycation rates are affected. EST. AVERAGE GLUCOSE 148 mg/dL 05/05/2025 6:04 PM EDT [facility] Blood Venous blood / Unknown Venipuncture / Unknown 05/05/2025 9:31 AM EDT 05/05/2025 9:31 AM EDT Cassandra Osborne SOUND EQUIPMENT MECHANIC-VEGETABLE LOADER LAB BLOOD ORDERABLES Final Result [facility] [address] [place] [address], [place] [phone] * (ABNORMAL) Lipid profile (05/05/2025 9:31 AM EDT) CHOLESTEROL 152 150 - 200 mg/dL 05/05/2025 6:04 PM EDT [facility] TRIGLYCERIDE 169(H) 27 - 150 mg/dL 05/05/2025 6:04 PM EDT [facility] HDL CHOLESTEROL 37(L) >39 mg/dL 6:04 PM EDT [facility] Comment: HDL <40 mg/dL - High Risk HDL > or = 40mg/dL- Desirable HDL >60 mg/dL - Negative Risk LDL (CALC) 81 <130 mg/dL 05/05/2025 6:04 PM EDT [facility] Comment: LDL <100 mg/dL - Desirable LDL >160 mg/dL - High Risk CHOLESTEROL:HDL 4.1 1.0 - 5.0 6:04 PM EDT [facility] VERY LOW LIPOPROTEIN 34(H) 0 - 30 mg/dL 05/05/2025 6:04 PM EDT [facility] Blood Venous blood / Unknown Venipuncture / Unknown 05/05/2025 9:31 AM EDT 05/05/2025 9:31 AM EDT Cassandra Osborne SOUND EQUIPMENT MECHANIC-VEGETABLE LOADER LAB BLOOD ORDERABLES Final Result [facility] [address] [place] [address], [place] [phone] * [place] Top On Ice (05/05/2025 9:27 AM EDT) Extra Tube Auto Resulted 05/05/2025 11:01 AM EDT [facility] Blood Venous blood / Unknown Venipuncture / Unknown 05/05/2025 9:27 AM EDT 05/05/2025 9:33 AM EDT us Pablo Reece DO LAB BLOOD ORDERABLES Fin al Result [facility] [address] [place] [address], * CT angiogram carotid (05/05/2025 9:25 AM EDT) Anatomical Region Laterality Modality Neuro, Neck, Vascular, Neuro Covera N/A Computed Tomography 05/05/2025 9:26 AM EDT Narrative 05/05/2025 9:27 AM EDT CLINICAL INFORMATION: stroke like symptoms TECHNIQUE: CT angiogram performed following intravenous administration of nonionic intravenous contrast. Coronal and sagittal and 3-D volume rendered maximum intensity projection images generated and reviewed under concurrent physician supervision. Automated exposure control utilized. The [place] Symptomatic Carotid Endarterectomy Trial (NASCET) method for calculating the degree of stenosis was utilized for stenosis measurements. All CT scans at this facility use dose modulation, iterative reconstruction, and/or weight based dosing when appropriate to reduce radiation dose to as low as reasonably achievable. COMPARISON: No relevant prior studies available. FINDINGS: The thyroid is unremarkable. Salivary glands are symmetric. No adenopathy within the neck. Lung apices are clear. The great vessels are patent at their origin, the common carotid arteries are patent throughout their course in the neck without flow-limiting stenosis or occlusion. The carotid bulbs are patent bilaterally with minimal atherosclerotic calcification, the internal carotid arteries are patent throughout their course in the neck without flow-limiting stenosis or occlusion. The origin of the vertebral arteries is patent bilaterally, no flow-limiting stenosis or occlusion of the vertebral arteries throughout their course in the neck. Multilevel degenerative changes of the cervical spine with bulky endplate osteophytes involving levels C4-C7. IMPRESSION: * No major arterial flow-limiting stenosis or occlusion within the neck. Finalized by Zaria Gomez MD on 05/05/2025 9:27 AM Procedure Note Zaria Gomez MD - 05/05/2025 CLINICAL INFORMATION: stroke like symptoms TECHNIQUE: CT angiogram performed following intravenous administration of nonionicintravenous contrast. Coronal and sagittal and 3-D volume rendered maximum intensity projectionimages generated and reviewed under concurrent physician supervision. Automated exposure control utilized. The [place] SymptomaticCarotid Endarterectomy Trial (NASCET) method for calculating the degree ofstenosis was utilized for stenosis measurements. All CT scans at this facility use dose modulation, iterativereconstruction, and/or weight based dosing when appropriate to reduceradiation dose to as low as reasonably achievable. COMPARISON: No relevant prior studies available. FINDINGS: The thyroid is unremarkable. Salivary glands are symmetric. No adenopathywithin the neck. Lung apices are clear. The great vessels are patent at their origin, the common carotid arteriesare patent throughout their course in the neck without flow-limitingstenosis or occlusion. The carotid bulbs are patent bilaterally withminimal atherosclerotic calcification, the internal carotid arteries arepatent throughout their course in the neck without flow-limiting stenosis orocclusion. The origin of the vertebral arteries is patent bilaterally, noflow-limiting stenosis or occlusion of the vertebral arteries throughouttheir course in the neck. Multilevel degenerative changes of the cervical spine with bulky endplateosteophytes involving levels C4-C7. IMPRESSION: * No major arterial flow-limiting stenosis or occlusion within theneck. Finalized by Zaria Gomez MD on 05/05/2025 9:27 AM Pablo Reece DO IM CT ORDERABLES Final Result * ED NIHSS And Thrombolytic MD Screening (05/05/2025 9:25 AM EDT) Pablo Silveira DO - 05/05/2025 9:25 AM EDT Pablo Reece DO 05/05/2025 11:43 AM ED NIHSS And Thrombolytic MD Screening Performed by: Pablo Reece DO Authorized by: Pablo Reece DO LOC: 0 - Alert LOC Questions: 1 - Answers 1 correctly LOC Commands: 0 - Performs both tasks correctly Best Gaze: 0 - Normal horizontal movements Visual Mccarthy: 0 - No visual field defect Facial Movements: 0 - Normal Motor Function Right Arm: 0 - No drift right arm holds for 10 seconds Motor Function Left Arm: 1 - Left arm falls before 10 seconds, does not touch bed Motor Function Right Le - No drift right leg holds for full 5 seconds Motor Function Left Le - Left leg drifts before 5 seconds, does not touch bed Limb Ataxia: 0 - No limb ataxia Sensory: 0 - No sensory loss Language: 0 - Language normal Articulation: 0 - Articulation normal Extinction or Inattention: 0 - Extinction or inattention absent TOTAL NIHSS SCORE: 3 Do presenting disabilities interfere with lifestyle(i.e. work, hobbies, entertainment etc.?: No Absolute Contraindications: Onset greater than 4.5 hours - Patient not eligible for Thrombolytic. Other Contraindications: Low NIHSS with s/s that do not interfere with quality of life Decision for Thrombolytics: Thrombolytics will not be given based on the history and assessment of the patient. us Pablo Reece DO PROCEDURE/MINOR SURGICAL ORDERABLES Final Result * CT angiogram head (05/05/2025 9:25 AM EDT) Anatomical Region Laterality Modality Head, Neuro, Vascular, Head and Neck, Neuro [place] ra N/A Computed Tomography 05/05/2025 9:28 AM EDT Narrative 05/05/2025 9:30 AM EDT CLINICAL INFORMATION: stroke like symptoms TECHNIQUE: CT angiogram of the head was performed following intravenous administration of nonionic intravenous contrast. 3-D maximum intensity projection images generated and reviewed under concurrent physician supervision. Automated exposure control was utilized. Arterial blood flow was measured to assist the stroke clinical team in the diagnosis of large vessel occlusion in patients undergoing screening for acute ischemic stroke using Rapid AI software when clinically indicated. All CT scans at this facility use dose modulation, iterative reconstruction, and/or weight based dosing when appropriate to reduce radiation dose to as low as reasonably achievable. COMPARISON: No relevant prior studies available. FINDINGS: The internal carotid arteries are patent throughout their course in the carotid canal and cavernous segment with mild scattered atherosclerotic calcifications, no flow-limiting stenosis or occlusion. The A1 segment of the intracerebral arteries is patent, the anterior cerebral arteries are patent. The middle cerebral arteries are patent bilaterally without flow-limiting stenosis or occlusion. The V4 segment of the vertebral arteries is patent, the basilar artery is patent, origin of the right posterior cerebral artery which is patent, the left posterior cerebral artery is patent without flow-limiting stenosis or occlusion. Partial opacification of the dural venous sinuses which appear grossly patent. IMPRESSION: * No major arterial flow-limiting stenosis or occlusion within the head. Finalized by Zaria Gomez MD on 05/05/2025 9:30 AM Procedure Note Zaria Gomez MD - 05/05/2025 CLINICAL INFORMATION: stroke like symptoms TECHNIQUE: CT angiogram of the head was performed following intravenousadministration of nonionic intravenous contrast. 3-D maximum intensity projection images generated and reviewed underconcurrent physician supervision. Automated exposure control wasutilized. Arterial blood flow was measured to assist the stroke clinical team in thediagnosis of large vessel occlusion in patients undergoing screening foracute ischemic stroke using Rapid AI software when clinically indicated. All CT scans at this facility use dose modulation, iterativereconstruction, and/or weight based dosing when appropriate to reduceradiation dose to as low as reasonably achievable. COMPARISON: No relevant prior studies available. FINDINGS: The internal carotid arteries are patent throughout their course in thecarotid canal and cavernous segment with mild scattered atheroscleroticcalcifications, no flow-limiting stenosis or occlusion. The A1 segment of the intracerebral arteries is patent, the anteriorcerebral arteries are patent. The middle cerebral arteries are patent bilaterally without flow- limitingstenosis or occlusion. The V4 segment of the vertebral arteries is patent, the basilar artery ispatent, origin of the right posterior cerebral artery which ispatent, the left posterior cerebral artery is patent without flow-limitingstenosis or occlusion. Partial opacification of the dural venous sinuses which appear grosslypatent. IMPRESSION: * No major arterial flow-limiting stenosis or occlusion within thehead. Finalized by Zaria Gomez MD on 05/05/2025 9:30 AM Pablo Reece DO IM CT ORDERABLES Final Result * CT brain without contrast stroke alert (05/05/2025 9:12 AM EDT) Anatomical Region Laterality Modality Neuro, Head, Head and Neck, Neuro [place] N/A Computed Tomography 05/05/2025 9:19 AM EDT Narrative 05/05/2025 9:19 AM EDT STUDY: CT HEAD WITHOUT CONTRAST CLINICAL HISTORY: stroke like symptoms acute neurologic symptoms. Stroke. CVA. TIA. COMPARISON: None. TECHNIQUE: CT head was performed without contrast utilizing 2.5 mm axial reconstruction with images reviewed in bone and brain windows. Automated exposure control was utilized. FINDINGS: There is no intracranial mass, mass effect or shift of midline structures. There is no extra-axial fluid collection. Hazel-white differentiation is preserved. No CT evidence of large vessel vascular distribution of acute infarct, acute ischemia or hemorrhage. No depressed or widely calvarial fracture. Paranasal sinuses are well aerated. Please note, MRI is more sensitive for the evaluation of acute or focal process if indicated. IMPRESSION: 1. No evidence of an acute intracranial process. All CT scans at this facility use dose modulation, iterative reconstruction, and/or weight based dosing when appropriate to reduce radiation dose to as low as reasonably achievable. Finalized by Gerald Santana MD on 05/05/2025 9:19 AM Procedure Note Gerald Santana MD - 05/05/2025 STUDY: CT HEAD WITHOUT CONTRAST CLINICAL HISTORY: stroke like symptoms acute neurologic symptoms. Stroke.CVA. TIA. COMPARISON: None. TECHNIQUE: CT head was performed without contrast utilizing 2.5 mm axialreconstruction with images reviewed in bone and brain windows. Automatedexposure control was utilized. FINDINGS: There is no intracranial mass, mass effect or shift of midline structures.There is no extra-axial fluid collection. Hazel-white differentiation ispreserved. No CT evidence of large vessel vascular distribution of acuteinfarct, acute ischemia or hemorrhage. No depressed or widely calvarial fracture. Paranasal sinuses are well aerated. Please note, MRIis more sensitive for the evaluation of acute or focal process ifindicated. IMPRESSION: 1. No evidence of an acute intracranial process. All CT scans at this facility use dose modulation, iterativereconstruction, and/or weight based dosing when appropriate to reduceradiation dose to as low as reasonably achievable. Finalized by Gerald Santana MD on 05/05/2025 9:19 AM Pablo Reece DO IMG CT ORDERABLES Final Result * [facility] DIABETES EYE EXAM (02/18/2025 8:04 AM EDT) us Not In System Ref Prov HEALTH MAINTENANCE Final Result Performing Organization Address City/[facility]/ZIP Co de Phone Number MANUALLY TRANSCRIBED RESULTS * Colonoscopy Report (11/22/2022 6:41 AM EST) Narrative SYSTEMGENERATED, DOCUMENTATION - 11/22/2022 6:41 AM EST This order has been auto-finalized for image and report archival in PACs. *For full report details, please reach out to your physician. This image is visible to you in MyChart.* us Gerald Montaño DO IMG OR IMG ORDERABLES Final Result * Ambulatory referral to Podiatry (04/28/2019) us Maxime Altamirano MD OUTPATIENT REFERRAL ORDERABL ES Final Result Performing Organization Address City/[facility] Co de Phone Number MANUALLY TRANSCRIBED RESULTS from Last 3 Months or Most Recently Relevant to Health Maintenance Insurance MEDICARE Advance Directives * Full Code (Latest Code Status on File) Date Activated Date Inactivated Comments 05/05/2025 2:35 PM 05/06/2025 4:27 PM * Full Code Date Activated Date Inactivated Comments 11/24/2024 12:31 PM 11/25/2024 4:50 PM * Full Code Date Activated Date Inactivated Comments 12/02/2019 1:12 PM 12/03/2019 1:37 PM * Full Code Date Activated Date Inactivated Comments 08/15/2017 1:09 PM 08/19/2017 7:01 PM Care Teams Surfacing Technician Relationship Specialty Start Date End Date Gerald Garcia DO [address] [place] [address], [address] [place], [place] [id number] PCP - General Family Medicine 05/05/25
--- OUTSIDE RECORDS SUMMARY | 2025-06-08 09:26 | XMS_ITS | Encounter Summary ---
Author Organization [employer] s tem Address [id number] [address] [place] [address] Care Team Providers Care Inspector Scales Name Role Phone RanjithGerald florez Sophie TY Primary Care Provider [phone] Encounter Details Date Type Department Care Team (Latest Contact Info) Description 06/01/2025 Travel Social History Tobacco Use Types Packs/Day Years [...] Description 06/24/2025 3:00 PM EDT [facility] [address] [place] [address] [place] [phone] Gerald Garcia DO [address] [facility], [facility] [address] [place] [address] 10/05/2025 3:00 PM EST Clinical Support [facility] - Pharmacy Medication Management [address] [place] [address] documented as of this encounter Goals Goal [...] documented as of this encounter Care Teams Inspector Scales Relationship Specialty Start Date End Date Gerald Garcia DO [address] [facility], [facility] [address], [address] [place], [place] [phone] PCP - General Family Medicine 05/05/25 documented as of this encounter
== END 2025-06-07 13:01 | disposition home or self-care (01) ==
LOC: SLEEP 06-08 09:22
PROVIDERS: PCP Psychiatry & Neurology Neurology; Visit Provider Psychiatry & Neurology Neurology
DX: G47.33 Obstructive sleep apnea (adult) (pediatric) (principal)
CPT/HCPCS: 95806